=== PATIENT | male | born 1980 | race American Indian/Alaskan Native ===

== ENCOUNTER 2017-02-14 18:46 | Emergency (ER) | payer OTHER ==
[2017-02-14] MEDS ORDERED: XYLOCAINE 2% INFILTRATI ONE ×2 (21:04→21:29)
--- NOTE | 2017-02-14 21:25 | Emergency Department Report ---
ED Laceration HPI - HPI Chief Complaint: Wound/Laceration Stated Complaint: CUT RIGHT THUMB Occurred When: Today Location: Upper Extremity (right distal anterior thumb) Severity: mild Tetanus Status: Up to Date Laceration Symptoms: Yes Pain, No Foreign Body Sensation, No Numbness, No Weakness Other History: 36 year old male presents to ED with right distal thumb laceration after slicing potatoes. Patient states slicer cut his finger just prior to arrival. Patient denies foreign body sensation or any type of object breaking off into skin. patient states last tetanus shot was 4 years ago. Patient is stable, neurologically intact and in no acute distress. patient has refused right hand xray. ED Review of Systems ROS: Stated complaint: CUT RIGHT THUMB Other details as noted in HPI Constitutional: denies: chills, fever Eyes: denies: eye pain, eye discharge, vision change ENT: denies: ear pain, throat pain Respiratory: denies: cough, shortness of breath, wheezing Cardiovascular: denies: chest pain, palpitations Endocrine: no symptoms reported Gastrointestinal: denies: abdominal pain, nausea, diarrhea Genitourinary: denies: urgency, dysuria Musculoskeletal: denies: back pain, joint swelling, arthralgia Skin: other. denies: rash, lesions Neurological: denies: headache, weakness, paresthesias Psychiatric: denies: anxiety, depression Hematological/Lymphatic: denies: easy bleeding, easy bruising ED Past Medical Hx - Past Medical History Previous Medical History?: No - Surgical History Past Surgical History?: No - Social History Smoking Status: Never Smoker Substance Use Type: None - Medications Home Medications: Home Medications Medication Instructions Recorded Confirmed Last Taken Type Cephalexin [Keflex] 500 mg PO Q12HR #14 cap 02/14/17 Unknown Rx Laceration Physical Exam - Exam General: Vital signs noted. No distress. Alert and acting appropriately. Wound Length (cm): 2 Laceration Location: Upper Extremity (right distal anterior thumb) Laceration Exam: Yes Normal Distal CMS (radial pulse intact bilaterally), No Foreign Body, No Exposed Tendon, Vessel, or Nerve, No Tendon Injury ED Course Vital Signs 02/14/17 19:18 Temperature 98.5 F Pulse Rate 61 Respiratory 18 Rate Blood Pressure 138/84 [Left] O2 Sat by Pulse 99 Oximetry - Laceration /Wound Repair Right Upper Anterior Distal Palm Finger Wound Location: upper extremity (right distal anterior thumb) Wound Length (cm): 2 Wound's Depth, Shape: superficial Wound Explored: clean Irrigated w/ Saline (ccs): 50 Betadine Prep?: Yes Anesthesia: 1% Lidocaine Volume Anesthetic (ccs): 5 Wound Debrided: minimal Wound Repaired With: sutures, Dermabond Suture Size/Type: 3:0, proline Number of Sutures: 4 Layer Closure?: No Sterile Dressing Applied?: Yes Progress: patient tolerated procedure well. bleeding controlled. ED Medical Decision Making - Radiology Data Patient refused hand xray. Patient has been explained the risk of refusing xray for foreign body involvement and states he understands. Patient will return in 7 days for removal of sutures. - Medical Decision Making patient is stable, neurologically intact and in no acute distress. patient tolerated laceration repair well and bleeding is controlled. patient will return in 7 days for removal of sutures. Critical care attestation.: If time is entered above; I have spent that time in minutes in the direct care of this critically ill patient, excluding procedure time. ED Disposition Clinical Impression: Laceration of finger Qualifiers: Encounter type: initial encounter Qualified Code(s): S61.219A - Laceration without foreign body of unspecified finger without damage to nail, initial encounter Disposition: DISCHARGED TO HOME OR SELFCARE Is pt being admited?: No Does the pt Need Aspirin: No Condition: Stable Instructions: Finger Laceration (ED) Prescriptions: Cephalexin [Keflex] 500 mg PO Q12HR #14 cap Referrals: PRIMARY CARE, [Primary Care Provider] - 3-5 Days Forms: Work/School Release Form(ED)
[2017-02-14] MEDS ORDERED: NORCO 10/325 PO ONE (21:27)
[2017-02-14 22:43] VITALS: BP 131/79
== END 2017-02-14 22:42 | disposition home or self-care (01) ==
LOC: ED 18:46
DX: S61.219A Laceration without foreign body of unspecified finger without damage to nail, initial encounter (principal); W26.8XXA Contact with other sharp object(s), not elsewhere classified, initial encounter; Y93.89 Activity, other specified; Y92.89 Other specified places as the place of occurrence of the external cause; Y99.8 Other external cause status